=== PATIENT | female | born 1930 | race Caucasian/White ===

== ENCOUNTER 2016-12-26 18:26 | Emergency (ER) | payer MEDICARE ==
[2016-12-26 18:40] VITALS: TEMP 98.5; BMI 20.5
[2016-12-26] MEDS ORDERED: NS 500 ML IV ONE (20:08)
--- NOTE | 2016-12-26 20:11 | EDPRACDOC ---
- General Information Chief Complaint: Neuro Symptoms/Deficits Stated Complaint: FALL / LEFT EYE INJURY Time Seen by Provider: 12/26/16 19:46 Mode Of Arrival: Car Home Medications: Home Medications Aspirin 325 mg PO DAILY #30 tab 12/26/16 Atorvastatin Calcium 40 mg PO QHS 12/26/16 Hydrochlorothiazide 25 mg PO DAILY 12/26/16 Losartan Potassium [Cozaar] 25 mg PO DAILY 12/26/16 Metoprolol Tartrate [Lopressor] 25 mg PO BID 12/26/16 Pantoprazole Sodium [Protonix] 40 mg PO DAILY #30 tab 12/26/16 Allergies/Adverse Reactions: Allergies Allergy/AdvReac Type Severity Reaction Status Date / Time Quinolones Allergy See Verified 12/26/16 18:40 Comments - History of Present Illness Onset: waitstaff captain HPI: PATIENT HAD A SYNCOPAL EPISODE AT 6PM TONIGHT. SHE STRUCK CORNER OF TABLE SHE FELL AND HIT LEFT ORBIT. NO VISION PROBLEMS OR EYE PAIN. DENIES CHEST PAIN OR SOB. OCCURRED JUST AFTER STANDING. RAPID RECOVERY. MILD HEADACHE. ABDOMINAL PAIN IN LUQ PRESENT FOR MONTHS. HX OF ABDOMINAL AORTIC ANEURYSM. Duration: Minutes Presyncopal phase:: Reports: None Syncopal phase:: Reports: With standing Postsyncopal phase:: Reports: Rapid recovery Prehospital care: Reports: None History of: Reports: Aneurysm Associated Signs/Symptoms: Reports: Abdominal pain, Headache. Denies: Chest pain, Diaphoresis, Fever, Nausea, Palpitations, SOB, Vomiting ED Past Medical History - History Reviewed Yes Nurses notes reviewed and agree except as marked Travel Outside of [place] in the Last 3 Months?: No - Patient Medical History Cardiac History: Reports: Hypertension, Heart Attack, CABG, Hypercholesterolemia. Denies: Cardiac Catheterization, Pacemaker GI/ History: Denies: Kidney Stones, Gastroesophageal Reflux Systemic History: Denies: Cancer Surgical History: Reports: CABG. Denies: Cardiac Catheterization - Social Medical History ETOH: None Substance Abuse: None Lives With: Family Lives In: Home EDM Review of Systems - Review of Systems ROS Negative Except as Marked: Yes All systems reviewed and were negative except as marked Constitutional: No Symptoms Reported. negative: Fever, Chills, Weakness, Fatigue, Loss of Appetite Eyes: No Symptoms Reported. negative: Redness, Blurred Vision, Double Vision, Discharge, Pain, Light Sensitive, Photophobia Ears: No Symptoms Reported. negative: Pain, Hearing Loss, Drainage, Ear Pulling Throat: No Symptoms Reported. negative: Pain, Swelling Nose: No Symptoms Reported. negative: Congestion, Bleeding, Discharge, Injection, Swelling, Deformity, Ecchymosis, Tender, Abrasion, Laceration Mouth: No Symptoms Reported. negative: Pain, Drooling Respiratory: No Symptoms Reported. negative: Cough, Brassy Cough, Barky Cough, Shortness of Breath, Wheezing, Hemoptysis Cardiovascular: Syncope. negative: Chest Pain, Cyanosis, Edema, Orthopnea, Palpitations, PND, Skin Mottling Gastrointestinal: No Symptoms Reported. negative: Pain, Constipation, Nausea, Vomiting, Diarrhea, Melena, Formula Intolerance Genitourinary: No Symptoms Reported. negative: Dysuria, Hematuria, Frequency, Discharge, Bleeding, Testicular Pain, Neurological: No Symptoms Reported. negative: Headache, Dizziness, Seizure, Numbness, Weakness, Speech Difficulty, Gait Difficulty Musculoskeletal: No Symptoms Reported. negative: Neck, Chestwall, Ribs, Back, Shoulder, Arm, Elbow, Forearm, Wrist, Hand, Pelvis, Hip, Femur, Knee, Leg, Ankle , Foot Integumentary: No Symptoms Reported. negative: Itching, Rash, Bruising, Wound Allergic/Immunologic: No Symptoms Reported. negative: Hives, Itching Hematologic: No Symptoms Reported. negative: Lymphadenopathy, Easy Bruising, Easy Bleeding Endocrine: No Symptoms Reported. negative: Weight Gain, Weight Loss Psychiatric: No Symptoms Reported. negative: Anxiety, Depression, Hallucinations, Insomnia, Suicidal - Physical Exam Constitutional: Alert (Awake), No apparent distress Oriented to: Time, Person, Place Last recorded Vital Signs: Last Vital Signs Temp 98.5 F 12/26/16 18:34 Pulse 103 12/26/16 18:34 Resp 18 12/26/16 18:34 BP 161/78 12/26/16 18:34 Pulse Ox 96 12/26/16 18:34 Oxygen Pulse Oxygen Saturation 96 O2 Device Oxygen Flow Rate Fraction of Inspired Oxygen ( FIO2) - HEENT Head: Normal ( normocephalic) Eye Exam: Normal (PERRL, EOMI, Sclera white) Oropharynx: Normal (Pharynx:Moist without exudate,Gums-no swelling) Tympanic Membrane: Normal ENT EAC: Normal TMJ: Normal Nose: No Symptoms Reported (septum midline) Neck: Normal (FROM, trachea at midline) - Respiratory/Cardiovascular Respiratory: Normal - CTA (BBS clear to auscultation without adventitious sounds ) Cardiovascular: Normal (RRR without murmur, gallop or rub) - GI Auscultation: Normal (NABS) Palpation: Normal (Soft,No rebound or guarding, non distended) Tenderness: Non tender Barksdale's Sign: Negative - Musculoskeletal Back: Normal (Non-Tender) Extremities: Normal (Normal tone, Pulses 2+ No cyanosis or edema, FROM) - Integumentary Skin: Normal, Warm, Dry Lymphatics: Normal (no adenopathy) - Neurologic Memory Impaired: Normal Motor Function: Normal (Normal tone, Pulses 2+ No cyanosis or edema, FROM) Cranial Nerve: Normal (CN II-X11 intact sensation, strength 5/5) Cerebellar: Normal Mood Description: Normal Perception: Normal - Results 12/26/16 20:45 12/26/16 20:45 - EKG EKG #1 EKG Time: 20:39 -: Yes EKG interpreted by me Rate: bpm: [address] [place]: LAD Rhythm: NSR Block: RBBB Hypertrophy: None ST: Normal Decision Time to Discharge: 22:37 - Departure Yes I personally saw and evaluated the patient. Disposition: Home Condition: Good Final Diagnosis: Celiac artery stenosis Abdominal pain Qualifiers: Abdominal location: generalized Qualified Code(s): R10.84 - Generalized abdominal pain Head contusion Qualifiers: Encounter type: initial encounter Contusion of head detail: scalp Qualified Code(s): S00.03XA - Contusion of scalp, initial encounter Forehead abrasion Qualifiers: Encounter type: initial encounter Qualified Code(s): S00.81XA - Abrasion of other part of head, initial encounter Instructions: Non-pharmacological Pain Management Therapies for Adults (GEN), Abdominal Pain (ED) Education/Counseling Given To: Patient Education/Counseling Given Regarding: Diagnosis, Treatment, Prognosis, Follow Up Referrals: Magnolia Isbell PA [Primary Care Provider] - One Week Prescriptions: New Aspirin 325 mg PO DAILY #30 tab Pantoprazole Sodium [Protonix] 40 mg PO DAILY #30 tab No Action Losartan Potassium [Cozaar] 25 mg PO DAILY Hydrochlorothiazide 25 mg PO DAILY Atorvastatin Calcium 40 mg PO QHS Metoprolol Tartrate [Lopressor] 25 mg PO BID
[2016-12-26 20:57] LABS: AUTOMATED BASOPHIL 0.5 % (0-2); AUTOMATED EOSINOPHIL 0.3 % (0-5); AUTOMATED LYMPH 10.7 % (17-44); AUTOMATED MONOCYTE 8.2 % (3-10); AUTOMATED NEUTROPHIL 80.3 % (45-76)
[2016-12-26] MEDS ORDERED: Pharmacy Review for Metformin - IV Contrast Given SCH (21:00)
[2016-12-26 21:08] LABS: BLOOD UREA NITROGEN 30 MG/DL (7-17); CALCIUM 10.6 MG/DL (8.4-10.2); CALCULATED OSMOLALITY 280 MOs/Kg (270-290); CHLORIDE 102 mEq/L (98-107); GLUCOSE 110 MG/DL (70-99); SODIUM LEVEL 142 mEq/L (137-146); TOTAL PROTEIN 6.9 G/DL (6.3-8.2)
[2016-12-26 21:09] LABS: PARTIAL THROMB. TIME 22.1 SEC (22-35)
--- NOTE | 2016-12-26 22:28 | DIRPT ---
CLINICAL DATA: Syncope while walking to kitchen, with laceration above the left orbit. Concern for head or cervical spine injury. Initial encounter. EXAM: CT HEAD WITHOUT CONTRAST CT CERVICAL SPINE WITHOUT CONTRAST TECHNIQUE: Multidetector CT imaging of the head and cervical spine was performed following the standard protocol without intravenous contrast. Multiplanar CT image reconstructions of the cervical spine were also generated. COMPARISON: CT of the neck performed 09/22/2006 FINDINGS: CT HEAD FINDINGS There is no evidence of acute infarction, mass lesion, or intra- or extra-axial hemorrhage on CT. Prominence of the ventricles and sulci suggests mild cortical volume loss. Scattered periventricular and subcortical white matter change likely reflects small vessel ischemic microangiopathy. The brainstem and fourth ventricle are within normal limits. The basal ganglia are unremarkable in appearance. The cerebral hemispheres demonstrate grossly normal rivera-white differentiation. No mass effect or midline shift is seen. There is no evidence of fracture; visualized osseous structures are unremarkable in appearance. The visualized portions of the orbits are within normal limits. The paranasal sinuses and mastoid air cells are well-aerated. No significant soft tissue abnormalities are seen. CT CERVICAL SPINE FINDINGS There is no evidence of acute fracture or subluxation. There is grade 1 anterolisthesis of C2 on C3 and of C3 on C4. Multilevel disc space narrowing is noted along the cervical spine, with scattered anterior and posterior disc osteophyte complexes, and mild underlying facet disease. Vertebral bodies demonstrate normal height. Prevertebral soft tissues are within normal limits. A 1.3 cm hypodensity within the right thyroid lobe is likely benign, given its size. Scarring is noted at the lung apices, with mild associated calcification. Dense calcification is noted at the carotid bifurcations bilaterally, likely corresponding to relatively severe luminal narrowing on the right. Diffuse calcification is noted along the aortic arch and proximal great vessels. IMPRESSION: 1. No evidence of traumatic intracranial injury or fracture. 2. No evidence of acute fracture or subluxation along the cervical spine. 3. Mild cortical volume loss and scattered small vessel ischemic microangiopathy. 4. Diffuse degenerative change along the cervical spine. 5. Scarring at the lung apices, with mild associated calcification. 6. Dense calcification at the carotid bifurcations bilaterally, likely corresponding to relatively severe luminal narrowing on the right. 7. Diffuse calcification along the aortic arch and proximal great vessels. Electronically Signed By: Derick Villar M.D. On: 12/26/2016 22:25
--- NOTE | 2016-12-26 22:34 | DIRPT ---
CLINICAL DATA: Syncope. Upper abdominal and back pain. History of abdominal aortic aneurysm repair. EXAM: CT ANGIOGRAPHY CHEST, ABDOMEN AND PELVIS TECHNIQUE: Multidetector CT imaging through the chest, abdomen and pelvis was performed using the standard protocol during bolus administration of intravenous contrast. Multiplanar reconstructed images and MIPs were obtained and reviewed to evaluate the vascular anatomy. CONTRAST: 100 mL Isovue 370 COMPARISON: CT angio abdomen and pelvis 04/27/2008 FINDINGS: CTA CHEST FINDINGS Noncontrast images of the chest are limited due to motion artifact. There is diffuse calcification of the thoracic aorta and great vessels. Mild ectasia of the transverse and descending thoracic aorta. No evidence of intramural hematoma. Postoperative changes in the mediastinum consistent with previous bypass surgery. Images obtained during arterial phase of bullous contrast injection demonstrate patent thoracic aorta and great vessels. No evidence of aortic dissection. Ectatic descending thoracic aorta. The lower descending aorta just above the diaphragmatic hiatus measures about 3.7 cm maximal AP dimension. Diffuse calcific atherosclerotic change. Normal heart size. Central pulmonary arteries are well opacified without evidence of significant pulmonary embolus. Esophagus is decompressed. No significant lymphadenopathy in the chest. Calcified granulomas and scattered fibrosis in the lungs. Mild dependent atelectasis. No focal airspace disease or consolidation. No pleural effusions. No pneumothorax. Review of the MIP images confirms the above findings. CTA ABDOMEN AND PELVIS FINDINGS Postoperative changes with inferior abdominal aorta 2 bilateral femoral bypass. Prominent calcification of the [place] aorta and throughout the major aortic branch vessels. Extensive calcifications noted throughout the celiac axis, superior mesenteric artery, at the origins of the renal arteries, and the [place] iliac, external iliac, and internal iliac arteries. 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 Some flow is demonstrated in the right [place] external iliac artery. Visualized portion of the proximal right superficial femoral artery demonstrates apparent occlusion without flow demonstrated. Significant stenosis in the left common femoral and superficial femoral arteries is likely. Significant stenosis of the celiac axis and superior mesenteric artery are likely. Nephrograms are symmetrical. Surgical absence of the gallbladder. Bile duct dilatation is likely normal for postoperative physiology. Liver, spleen, pancreas, adrenal glands, inferior vena cava, and retroperitoneal lymph nodes are unremarkable. Bilateral renal parenchymal atrophy. Bilateral renal cysts. Hyperdense exophytic lesion off of the midpole left kidney, measuring 1.3 cm diameter. This probably represents a hemorrhagic cyst. However, the lesion has not been present previously and follow-up is suggested to exclude developing renal mass. Consider six-month follow-up versus MRI depending on clinical indications. No hydronephrosis in either kidney. The stomach, small bowel, and colon are not abnormally distended. No free air or free fluid in the abdomen. Pelvis: The appendix is normal. No pelvic mass or lymphadenopathy. Bladder wall is not thickened. No free or loculated pelvic fluid collections. Degenerative changes throughout the thoracic and lumbar spine. Postoperative changes in the sternum. No destructive bone lesions. Review of the MIP images confirms the above findings. IMPRESSION: Prominent diffuse atherosclerotic changes throughout the thoracic and abdominal aorta and major branch vessels as discussed. There is likely to be significant stenosis of celiac axis and superior mesenteric artery and there appears to be occlusion of the proximal right superficial femoral artery. Abdominal aorta by a femoral bypass graft appears patent. Ectatic descending thoracic aorta. No evidence of aortic dissection. Indeterminate hyperdense lesion in the left kidney. Consider six-month follow-up versus MRI for further evaluation. Electronically Signed By: Shayne Garcia M.D. On: 12/26/2016 22:32
[2016-12-26 22:58] VITALS: BP 138/72; PULSE 72
== END 2016-12-26 22:55 | disposition home or self-care (01) ==
LOC: ED 18:26
DX: R10.84 Generalized abdominal pain (principal); S00.03XA Contusion of scalp, initial encounter; S00.81XA Abrasion of other part of head, initial encounter; X58.XXXA Exposure to other specified factors, initial encounter; Y93.89 Activity, other specified
CPT/HCPCS: 36415; 70450; 71275; 72125; 74174; 80053; 84484; 85025; 85610; 85730; 93005; 96360; 99283; A9698